=== PATIENT | female | born 1970 | race Caucasian/White ===

== ENCOUNTER 2019-11-26 19:56 | Emergency (ER) | payer BC ==
[~2019-11-26] VITALS: Ht 170.2 cm; Wt 81.6 kg
[2019-11-26] MEDS ORDERED: Oseltamivir 75mg cap ORAL SCH (20:15)
--- NOTE | 2019-11-26 20:27 | Emergency Room Report ---
History of Present Illness General Chief Complaint: Upper Respiratory Illness Present Illness HPI 49-year-old female with history of breast cancer x2 years which has been resolved and currently under the care of oncologist here complaining of new onset of 1 day of generalized body ache, cough and congestion. Denies sore throat, earache, headache and dizziness, abdominal pain nausea vomiting. Reports that she often goes to clinic due to having history of eating disorder and alcohol abuse. Has not had any alcohol recently. Vital signs are within normal limits. Appears to be stable. Denies . Denies chest pain, shortness of breath, palpitation, no other associated symptoms. Allergies: Coded Allergies: No Known Allergies (Unverified , 11/26/19) Patient History Past Medical History: see triage record Past Surgical History: unable to obtain Pertinent Family History: none Last Menstrual Period: na Now: No Immunizations: UTD Reviewed Nursing Documentation: PMH: Agreed; PSxH: Agreed Review of Systems All Other Systems: negative except mentioned in HPI Physical Exam Vital Signs Date Time Temp Pulse Resp B/P (MAP) Pulse Ox O2 Delivery O2 Flow Rate FiO2 11/26/19 19:58 99.1 87 16 105/67 (80) 97 Room Air Sp02 EP Interpretation: reviewed, normal General Appearance: no apparent distress, alert, GCS 15, non-toxic Head: normocephalic, atraumatic Eyes: bilateral eye normal inspection, bilateral eye PERRL ENT: normal voice, TMs + canals normal, nasal congestion, pharyngeal erythema Neck: full range of motion, supple, supple/symm/no masses Respiratory: chest non-tender, lungs clear, normal breath sounds, no rhonchi, no respiratory distress, no accessory muscle use, no wheezing, speaking full sentences Cardiovascular #1: regular rate, rhythm, no edema, no murmur, normal capillary refill Gastrointestinal: non tender, soft, no mass Rectal: deferred Genitourinary: no CVA tenderness Musculoskeletal: back normal Neurologic: alert, motor strength/tone normal, oriented x3, sensory intact, responsive, speech normal Psychiatric: judgement/insight normal, memory normal, mood/affect normal, no suicidal/homicidal ideation Skin: no rash Lymphatic: no adenopathy Medical Decision Making PA Attestation All my diagnosis and treatment plans were reviewed ad discussed with my supervising physician Dr. Wilhelm Diagnostic Impression: Primary Impression: Influenza ER Course 49-year-old female with history of breast cancer x2 years which has been resolved and currently under the care of oncologist here complaining of new onset of 1 day of generalized body ache, cough and congestion. Denies sore throat, earache, headache and dizziness, abdominal pain nausea vomiting. Reports that she often goes to clinic due to having history of eating disorder and alcohol abuse. Has not had any alcohol recently. Vital signs are within normal limits. Appears to be stable. Denies . Denies chest pain, shortness of breath, palpitation, no other associated symptoms. Ddx considered but are not limited to: strep pharyngitis, URI, tonsillitis, peritonsillar abscess, influenza Vital signs: are WNL, pt. is afebrile H&PE are most consistent with: Influenza ORDERS: Chest x-ray, Tamiflu, guaifenesin, albuterol ED INTERVENTIONS: Tamiflu p.o. DISCHARGE: At this time pt. is stable for d/c to home. Will provide printed patient care instructions, and any necessary prescriptions. Care plan and follow up instructions have been discussed with the patient prior to discharge. Patient take medication as directed, follow-up primary care provider, increase oral hydration, if worsening symptoms return to the emergency room Chest X-Ray Diagnostic Results Chest X-Ray Diagnostic Results : Chest X-Ray Ordered: Yes # of Views/Limited/Complete: 1 View Indication: Other - cough EP Interpretation: Yes PA Xray: Interpretation reviewed, by supervising MD, and agrees with findings. Interpretation: no consolidation, no effusion, no pneumothorax Impression: No acute disease Electronically Signed by: Michelle Bowling Text FINDINGS: Lungs: No consolidation. Pleural space: Unremarkable. No pneumothorax. Heart: Unremarkable. No cardiomegaly. Mediastinum: Unremarkable. Bones/joints: No acute fracture. Surgical clips in the right axillary area. IMPRESSION: No acute cardiopulmonary disease. Last Vital Signs Date Time Temp Pulse Resp B/P (MAP) Pulse Ox O2 Delivery O2 Flow Rate FiO2 11/26/19 19:58 99.1 87 16 105/67 (80) 97 Room Air Disposition: HOME, SELF-CARE Condition: Stable Patient Instructions: Upper Respiratory Infection, Adult Additional Instructions: Take medication as directed, follow-up with primary care provider, increase oral hydration, if worsening symptoms return to the emergency room Michelle Mcclendon Nov 26, 2019 20:27
--- NOTE | 2019-11-26 20:29 | NUR ---
ED Nurse Note: pt presents to ED c/o cough, HORNE and chest tightness since this AM. pt also states that she is experiencing body ahces and a sore throat. pt reports taking dayquil and tylenol today with some relief of symptoms. pt is concerned about pneumonia which she has a history of and would like to be evaluated for that
[2019-11-26 20:30] VITALS: BP 105/67
--- NOTE | 2019-11-26 20:52 | Diagnostic Imaging Report ---
EXAM: XR Chest, 1 View CLINICAL HISTORY: COUGH TECHNIQUE: Frontal view of the chest. COMPARISON: No relevant prior studies available. FINDINGS: Lungs: No consolidation. Pleural space: Unremarkable. No pneumothorax. Heart: Unremarkable. No cardiomegaly. Mediastinum: Unremarkable. Bones/joints: No acute fracture. Surgical clips in the right axillary area. IMPRESSION: No acute cardiopulmonary disease.
[2019-11-26] MEDS ORDERED: VENTOLIN HFA18 GM INH (21:01)
[2019-11-26] MEDS ORDERED: TAMIFLU75 MG ORAL (21:01)
[2019-11-26] MEDS ORDERED: GUAIFENESI100 MG/5 M ORAL (21:01)
[2019-11-26 21:10] VITALS: BP 105/67
--- NOTE | 2019-11-26 21:10 | NUR ---
ER DISCHARGE NOTE: Patient cleared for DC by Dr. Wilhelm. Patient verbalized understanding of DC and prescription instructions. all medical devices such as ID band removed. patient AxO x 4, ambulates with steady gait, pt left with all belongings
== END 2019-11-27 | disposition home or self-care (01) ==
LOC: EMR 11-27 01:24
DX: J11.1 Influenza due to unidentified influenza virus with other respiratory manifestations (principal); Z85.3 Personal history of malignant neoplasm of breast
CPT/HCPCS: 71045; 99283